=== PATIENT | female | born 1980 | race Caucasian/White ===

== ENCOUNTER 2016-07-26 05:47 | Observation (INO) | payer BC ==
--- NOTE | 2016-07-18 12:57 | GHP ---
[f rep st] PREOP HISTORY AND PHYSICAL DATE OF ADMISSION: 07/26/2016 PROCEDURE TO BE PERFORMED: Total laparoscopic hysterectomy, bilateral salpingectomy. PATENTS EXAMINER: Dr. Kaia Fenton. PREOPERATIVE DIAGNOSIS: Symptomatic uterine fibroids and menometrorrhagia. HISTORY OF PRESENT ILLNESS: Luz is a 36-year-old, 0 with a longstanding history of heavy menstrual periods, bleeding for over 7 days, heavy bleeding, clots and cramps, who has been treated with oral contraceptive pills for many years to control her menstrual symptoms. Over the past year, she has had increasing bulk symptoms, feeling fullness in her pelvis and in her lower back, inhibiting her from exercising the way she wants to and having worsening cramps. The cramps are debilitating, requiring multiple doses of meds throughout the day and providing her from being able to work like she wishes to during her monthly cycle. The patient has tried other therapies for her periods over the years including oral contraceptives, NuvaRing and a Mirena IUD. The Mirena caused worsening pain and was discontinued. The pills have helped the amount of blood but not the pain, and her bulk symptoms have continued to increase. When I evaluated her for a surgical consult, we performed an ultrasound. Ultrasound revealed large uterine fibroids. The largest is in her left adnexa and pedunculated, pushing the uterus to her right pelvis. That fibroid is 9.3 x 6.6 x 6.6 cm. She also has a submucosal fibroid that is 1.49 x 0.95 x 1.27 cm, and an intramural fibroid that is 0.7 x 0.8 x 0.8 cm. Ovaries are normal, and there were no other abnormalities in the pelvis. We sat down and discussed treatment options for her large fibroids and multiple fibroids causing menometrorrhagia and bulk symptoms. Patient and her partner are sure that they do not wish to have children at all in her lifetime. She has tried multiple medical management and it is not working. We offered uterine artery embolization, and she declined this and wishes to have definitive management with hysterectomy. We discussed surgical approaches for the hysterectomy and due to the large size of the uterine fibroid and the fact that she is nulliparous, she is not a candidate for vaginal hysterectomy. We will attempt a total laparoscopic hysterectomy; however, patient is aware that there may be constraints on this and we may need to convert to an open total abdominal hysterectomy. PAST MEDICAL HISTORY: The patient has really no significant past medical history except for fibroids and heavy periods throughout her life. No chronic medical problems. PAST SURGICAL HISTORY: She has never had any surgeries or hospitalizations before. ALLERGIES: She has no known drug allergies or food allergies. MEDICATIONS: Microgestin 35 and 1.5, and she was on some herbs from her chemical process engineer which she stopped approximately a month ago. SOCIAL HISTORY: She has a longstanding partner and they are engaged. She works as a senior java software engineer. She denies tobacco and drug use. Social alcohol use. FAMILY HISTORY: Father has prostate cancer. Mother and maternal grandmother had multiple fibroids and needed hysterectomies in their lifetime. OBJECTIVE: Today, blood pressure is 116/70, weight is 164. GENERAL: She is a well-developed, well-nourished, white female, in no acute distress. LUNGS: Clear to auscultation bilaterally. HEART: Regular rate and rhythm. No murmurs. ABDOMEN: Soft, nontender, nondistended. There is a fullness in her lower pelvic area toward the left. PELVIC: Normal external genitalia. Normal nulliparous cervix. Bulky uterus, approximately 14-16 week size and palpable anterior left fibroid pushing her uterus to the right. ASSESSMENT AND PLAN: A 36-year-old, 0 with large symptomatic uterine fibroids and menometrorrhagia. Desires definitive treatment with a total laparoscopic hysterectomy, bilateral salpingectomy. She will keep her ovaries. The patient was consented for the procedure. She understood the risks and benefits, risks including bleeding, infection, damage to internal organs, uterus , tubes, ovaries, bowel, bladder, nerves, blood vessels, ureters, need for additional procedures, need to convert to open procedure, and complications of anesthesia including . She understood these risks and benefits, and agreed to proceed. /[id number]/MODL MTDD
[2016-07-26] MEDS ORDERED: ceFAZolin 2 GM/DEXTROSE 100 ML IV ONE (06:00)
[2016-07-26] MEDS ORDERED: LIDOCAINE 1% 5 ML SDV ONE (06:15)
[2016-07-26] MEDS ORDERED: BUPIVACAINE 0.5% 30 ML SDV ONE ×2 (06:49→07:43)
[2016-07-26] MEDS ORDERED: LIDOCAINE 1% 5 ML SDV ID PRN (06:52)
[2016-07-26] MEDS ORDERED: LR 1,000 ML IV ONE (06:52)
[2016-07-26] MEDS ORDERED: morphINE PF 5 MG/10 ML INJ ONE (07:07)
[2016-07-26] MEDS ORDERED: DEXAMETHASONE 4 MG/ML VIAL ONE (07:08)
[2016-07-26] MEDS ORDERED: ROCURONIUM 50 MG/5 ML VIAL ONE ×2 (07:08→08:36)
[2016-07-26] MEDS ORDERED: PROPOFOL/EMULSION 500 MG/50 ML BOTTLE IV ONE (07:08)
[2016-07-26] MEDS ORDERED: MIDAZOLAM 2 MG/2 ML VIAL ONE (07:26)
[2016-07-26] MEDS ORDERED: LIDOCAINE 2% 5 ML SDV ONE (08:36)
[2016-07-26] MEDS ORDERED: METHYLENE BLUE 0.5% 50 MG/10 ML AMP ONE (09:11)
[2016-07-26] MEDS ORDERED: PROPOFOL 200 MG/20 ML VIAL ONE ×2 (09:30→10:40)
[2016-07-26] MEDS ORDERED: ONDANSETRON 4 MG/2 ML VIAL ONE (09:35)
[2016-07-26] MEDS ORDERED: KETOROLAC 30 MG/1 ML SDV ONE (09:50)
[2016-07-26] MEDS ORDERED: NEOSTIGMINE METHYLSULFATE 5 MG/5 ML SYR ONE (10:51)
[2016-07-26] MEDS ORDERED: GLYCOPYRROLATE 0.2 MG/1 ML VIAL ONE (10:51)
[2016-07-26] MEDS ORDERED: ONDANSETRON 4 MG/2 ML VIAL IVP PRN (11:02)
[2016-07-26] MEDS ORDERED: POLYETHYLENE GLYCOL 3350 17 GM PKT PO PRN (11:05)
[2016-07-26] MEDS ORDERED: HYDROmorphONE/DILAUDID 6 MG/30 ML PCA IV PRN (11:05)
[2016-07-26] MEDS ORDERED: NALOXONE HCL 0.4 MG/ML INJ IVP PRN (11:05)
[2016-07-26] MEDS ORDERED: BISACODYL 10 MG SUPP PR PRN (11:05)
[2016-07-26] MEDS ORDERED: LACTULOSE 20 GM/30 ML UDCUP PO PRN (11:05)
[2016-07-26] MEDS ORDERED: MAGNESIUM HYDROXIDE 30 ML UDCUP PO PRN (11:05)
--- NOTE | 2016-07-26 11:09 | POSTOPPROG ---
Post Op Note Date of Operation: 07/26/16 Surgeon: Alannah Mejia Line Therapist: Kaia Fenton Anesthesiologist: Dr Shantell Reno Anesthesia: Local (Specify) Pre-op Diagnosis: symptomatic uterine fibroids, menomenorrhagia Post-op Diagnosis: same Procedure: TLH B salpingectomy Findings: large broad ligament fibroids Inf/Abcess present in the surg proc area at time of surgery?: No Depth: Organ Space EBL: 50-100 Complications: none Specimen(s): uterus with broad ligament fibroid, bilateral tubes
[2016-07-26] MEDS ORDERED: LR 1,000 ML IV SCH (11:30)
[2016-07-26 12:01] VITALS: RESP 16
--- NOTE | 2016-07-26 12:05 | GOP ---
[f rep st] OPERATIVE REPORT DATE OF OPERATION: 07/26/2016 SURGEON: Alannah Mejia MD PREOPERATIVE DIAGNOSIS: Symptomatic uterine fibroids and menometrorrhagia. POSTOPERATIVE DIAGNOSIS: Symptomatic uterine fibroids and menometrorrhagia. PROCEDURE PERFORMED: Total laparoscopic hysterectomy, bilateral salpingectomy, excision of a broad ligament fibroid. FINDINGS: SPECIMENS: Pathologic specimen was uterus with bilateral tubes and broad ligament fibroid. ESTIMATED BLOOD LOSS: For the procedure was less than 100 cc. INDICATIONS: The patient is a 36-year-old, 0 with a longstanding history of heavy menstrual periods, bleeding for over 7 days, heavy, with clots and severe cramps. She has been treated with oral contraceptive pills for many years to control her menstrual symptoms. Over the past year, she has had increasing bulk symptoms, feeling fullness in her pelvis and her lower back, inhibiting her from exercising and having worsening and worsening cramps preventing her from working. She has tried many therapies over the years, including NuvaRing, Mirena IUD. The Mirena caused the worst pain she discontinued. She had an ultrasound to evaluate her anatomy and it revealed large uterine fibroids. The largest was in her left adnexa, pedunculated, pushing her uterus to the right of her pelvis, that measured 9.3 x 6.6 x 6.6 cm. She also had a submucosal fibroid that was 1.49 x 0.95 x 1.27 and another intramural fibroid that was small. Ovaries were normal. The patient has thought extensively about this. She does not wish to have children. She and her partner are in agreement on this and she has exhausted all of her medical management and desires to have definitive management with a hysterectomy. She was counseled on the risks and benefits of the surgery. The risks including bleeding, infection, damage to organs, bowel, bladder, nerves, blood vessels, ureters, risk of needing an open procedure, risk of additional procedures. She understood these risks and benefits and agreed to proceed. DESCRIPTION OF PROCEDURE: The patient was taken the operating room where she was placed under general anesthesia without difficulty. She was prepped and draped in dorsal lithotomy position and a Booth catheter was placed in her bladder. After a WHO time-out was performed, an open-sided speculum was placed in the vagina and a single-tooth tenaculum was used to grasp the anterior lip of the cervix. The uterus sounded to 8 cm. The cervix was dilated with Adams dilators to a #7. A MONIQUE uterine manipulator was then inserted over the cervix for the colpotomy and used for uterine manipulation. Speculum was removed, tenaculum was removed. Attention was then turned to the abdominal portion of the procedure and after injection of Marcaine, a 5 mm skin incision was made 2 cm superior to the umbilicus and a Veress needle was placed through that incision and pneumoperitoneum was created with carbon dioxide gas. A 5 mm atraumatic trocar was then placed under direct visualization and inspection of the pelvis was made. The patient was placed in steep Trendelenburg and the uterus was visualized and found to be small. There was a large broad ligament fibroid in her left adnexa that was independent from the uterus. Her ovaries and tubes were grossly within normal limits. After injection of Marcaine, a 5 mm skin incision was made in the right lower quadrant, an atraumatic trocar was placed in this location, a 1 cm incision was made in the left lower quadrant, and an atraumatic trocar was placed through this port. The left fallopian tube was grasped with an atraumatic grasper and the LigaSure was used to dissect along the mesosalpinx. The fallopian tube was then removed on this side. The ovary was immediately adherent to this large broad ligament fibroid. The fibroid was grasped with a tenaculum and care was taken to carefully dissect the fibroid out of the broad ligament peritoneum, hugging the fibroid, allowing for dissection of the utero-ovarian arteries and broad ligament, and the fibroid was dissected carefully and off the uterus from the left portion of the uterus. After careful dissection and evaluation of anatomy, the round ligament was noted and cauterized and cut, as well as the cardinal ligaments, and the fibroid was freed, placed in the cul-de-sac. After it was clear that the fibroid was independent from the uterus, we then turned to the right side of the uterus and the right fallopian tube was grasped with an atraumatic grasper, and dissection along the mesosalpinx and the fallopian tube on the right was performed with the LigaSure. That was removed directly, and then care was taken to identify the round ligament, and dissected along the anterior and posterior lip of the broad ligament, utero-ovarian ligaments, and a bladder flap was created in the anterior portion and dissected directly. The uterine vessels were cauterized and cut with the LigaSure until hemostasis was assured. The dissection was then carried on the left portion of the uterus where the bladder flap was created circumferentially. The uterine vessels were cauterized and cut and the anatomy was identified along the uterosacrals and the bladder flap until the entire colpotomy ring was identified and developed. We then turned to the Harmonic Scalpel where the colpotomy was performed posterior to anterior, circumferentially, along the colpotomy ring, and the uterus was removed without difficulty. We then grasped the large broad ligament fibroid, brought it to the top of the vaginal cuff, and grasped it with a tenaculum vaginally, and that was also removed without difficulty. A sponge glove was placed vaginally to preserve pneumoperitoneum and the colpotomy cuff was closed with 0 Vicryl V-Loc suture from right to left without difficulty and assuring good hemostasis. Careful inspection of the anatomy revealed good hemostasis, no further bleeding. The appendix was visualized. The liver and gallbladder were visualized without difficulty. The ovaries were normal bilaterally. The right ureter was clearly visualized in the right pelvic sidewall and was peristalsing normally. The left ureter was difficult to visualize because of adhesions from the broad ligament fibroid on that side and so the decision was made to proceed with cystoscopy to attempt to visualize the left ureter and assure that there was no injury. Cystoscopy was performed, patient was given methylene blue, and care was taken to remove the Booth, and perform cystoscopy. The left ureter was seen to be spilling; however, the right ureter was difficult to visualize. We visualized urine spilling clearly from the right side of the bladder, but the ureteral orifice was difficult to visualize. Methylene blue was never seen in the bladder despite an hour of waiting and due to the normal bladder and normal pelvic anatomy contour, the decision was made to abandon this procedure with assurance that the anatomy was normal and that no injuries were made. Attention was then turned back to the laparoscopy. The left adnexal port was removed and the fascial closure device was used to close the fascia. Pneumoperitoneum was allowed to escape and the skin incisions were closed with 4 -0 Monocryl. The patient tolerated the procedure well. Sponge, lap, needle, and instrument counts were correct x2. Patient went to the recovery room in good condition. URINE OUTPUT: 300 cc. FLUIDS REPLACED: 1800 cc. /[id number]/MODL MTDD
[2016-07-26] MEDS: KETOROLAC 30 MG/1 ML SDV IVP PRN (17:49)
[2016-07-27] MEDS: KETOROLAC 30 MG/1 ML SDV IVP PRN ×2 (00:22→05:38)
[2016-07-27] MEDS: SENNOSIDES/DOCUSATE SODIUM TAB PO SCH ×2 (00:22→08:23)
[2016-07-27] MEDS: HYDROCODONE/APAP 5/325 TAB PO PRN ×2 (03:10→08:23)
[2016-07-27 05:48] LABS: % IMMATURE GRANULYOCYTES 0.5 % (0.0-1.1); ABSOLUTE IMMATURE GRANULOCYTES 0.06 10^3/uL (0.00-0.10); ADD DIFF? NO; ADD MORPH? NO; ADD SCAN? NO; ATYPICAL LYMPHOCYTE FLAG 10 (0-99); FRAGMENT RBC FLAG 0 (0-99); HEMATOCRIT 37.2 % (38.0-47.0); HEMOGLOBIN 12.8 g/dL (12.6-16.3); LEFT SHIFT FLG 0 (0-99); LIPEMIA HEMOLYSIS FLAG 90 (0-99); MEAN CELL HEMOGLOBIN 32.2 pg (27.9-34.1); MEAN CELL HEMOGLOBIN CONCENTR. 34.4 g/dL (32.4-36.7); MEAN CELL VOLUME 93.7 fL (81.5-99.8); MEAN PLATELET VOLUME 10.2 fL (8.7-11.7); PLATELET CLUMPS FLAG 0 (0-99); PLATELET COUNT 235 10^3/uL (150-400); RED BLOOD CELL COUNT 3.97 10^6/uL (4.18-5.33); RED CELL DISTRIBUTION WIDTH 12.1 % (11.5-15.2)
[2016-07-27 08:15] VITALS: BP 108/58; PULSE 59; TEMP 98.2; O2SAT 96
--- NOTE | 2016-07-27 11:32 | SOAPPROG ---
SOAP Progress Note Assessment/Plan: Assessment: 36 y/p POD #1 s/p TLH B salpingectomy Plan: D/c home today with [place] and Ibuprofen. Follow-up @ [facility] 2 and 6 weeks. 07/27/16 11:31 Subjective: Pt is doing well this am. She has min pain controlled by po pain meds, no n/v, tolerating reg diet. Ambulating and voiding without difficulty and having no bleeding. She is ready to d/c home. Objective: Vital Signs Temp Pulse Resp BP Pulse Ox 36.8 C 59 L 16 108/58 L 96 07/27/16 08:00 07/27/16 08:00 07/27/16 08:00 07/27/16 08:00 07/27/16 08:00 Laboratory Results 07/27/16 05:30 07/26/16 07/27/16 07/28/16 05:59 05:59 05:59 Intake Total 2400 1250 Output Total 2835 400 Balance -435 850 - Pending Discharge Pending Discharge Within 24 Hours: Yes Pending Discharge Date: 07/28/16 Pending Discharge Time: 11:00 Physical Exam - Physical Exam General Appearance: WD/WN, alert, no apparent distress Neck: non-tender, full range of motion, supple Respiratory: chest non-tender, lungs clear, normal breath sounds Cardiac/Chest: regular rate, rhythm Abdomen: normal bowel sounds, other (incisions c/d/i) Extremities: swelling (no), Anisa's sign (neg) ICD10 Worksheet Patient Problems: Problems Problem Status Diagnosed Status post laparoscopic hysterectomy Acute
[2016-07-27] MEDS ORDERED: KETOROLAC 30 MG/1 ML SDV IVP PRN (12:04)
[2016-07-27] MEDS: IBUPROFEN 600 MG TAB PO SCH ×2 (12:12→12:15)
== END 2016-07-27 13:00 | disposition home or self-care (01) ==
LOC: F3E 05:47 → FOB 13:03
PROVIDERS: ADMIT Obstetrics & Gynecology; ATTEND Obstetrics & Gynecology
PROC: 0UT Female Reproductive System, Resection (ICD-10-PCS; 2016-07-26)
PROC: 0UT74ZZ Resection of Bilateral Fallopian Tubes, Percutaneous Endoscopic Approach (ICD-10-PCS; principal; 2016-07-26 07:15)
PROC: 0UT94ZZ Resection of Uterus, Percutaneous Endoscopic Approach (ICD-10-PCS; 2016-07-26 07:15)
DX: D25.9 Leiomyoma of uterus, unspecified (principal); N92.0 Excessive and frequent menstruation with regular cycle
CPT/HCPCS: 58571; G0378; J0690; J1100; J1885; J2250; J2274; J2405; J2704; J2710; Q9968